=== PATIENT | male | born 1960 | race Caucasian/White ===

== ENCOUNTER 2023-12-23 11:16 | Emergency (ER) | payer MEDICARE, SELFPAY ==
[2023-12-23] MEDS ORDERED: Ibuprofen 800 MG TAB ONE (11:29)
== END 2023-12-23 11:50 | disposition home or self-care (01) ==
LOC: BURERS 11:16
DX: J02.9 Acute pharyngitis, unspecified (principal); I10 Essential (primary) hypertension; E11.9 Type 2 diabetes mellitus without complications; F17.210 Nicotine dependence, cigarettes, uncomplicated
CPT/HCPCS: 87081; 87430; 99283